=== PATIENT | male | born 1960 | race Caucasian/White ===

== ENCOUNTER 2021-03-22 11:46 | Observation (INO) | payer BC ==
[2021-03-22] VITALS (9 sets, daily range): BP systolic 116–140; BP diastolic 69–80
[~2021-03-22] VITALS: Ht 185.4 cm; Wt 98.4 kg
--- NOTE | ~2021-03-22 | D ---
[address] [address] DISCHARGE SUMMARY Name: TOAN FORD Room: [address] M.R.#: [id number] Admission: 03/22/21 Attend Phys: Edward Ontiveros MD, Discharge: Date of : 60 Report #: [id number] THIS REPORT FOR: cc: Dennys Pathak MD, Steven E. MD Holkins,Edward Meléndez MD [facility] ~ DOC #: [id number] Edward Ontiveros MD [facility] DATE OF DISCHARGE: 03/23/2021 FINAL DISCHARGE DIAGNOSES: 1. Unstable angina. 2. Abnormal stress echocardiogram. 3. Status post percutaneous coronary intervention with atherectomy and stenting of the proximal-mid left anterior descending. 4. Hypertension. 5. Hyperlipidemia. PROCEDURE: 03/22/2021 - left heart catheterization, left ventriculography, selective coronary arteriography, fractional flow reserve calculated pertinent to the LAD and PCI with atherectomy, angioplasty and stenting of the proximal-mid LAD. HOSPITAL COURSE: The patient is a very pleasant 60-year-old male who has a history of coronary artery disease 6 years and 8 months, status post PCI to the LAD. He presented with recurrent achiness in the jaw, compatible with angina. Stress echocardiogram this last week was abnormal with inferior and anterolateral ST segment depression at peak exercise and during the post-exercise phase with 1.[address] segment depression noted with concomitant discomfort in the throat. Since then, he experienced other episodes of pain and ultimately presented to the ER on 03/22/2021. He had no evidence for acute myocardial injury, but was taken to the section laborer in this context. Catheterization revealed 75% proximal, 70% mid LAD stenosis. There was 40% narrowing of a marginal branch of the circumflex and no significant stenosis of the dominant right coronary artery. Left ventricular function was normal. Estimated ejection fraction of 60%. I performed FFR at rest on the tandem LAD lesions with Pd/Pa mean pressure value of 0.89 with minimum value at rest being 0.91. I elected not to provoke it with vasodilators in the context of a systemic pressure in the mid 90s during the procedure. Given the abnormal resting Pd/Pa-FFR, I elected to proceed with PCI to the proximal - mid LAD with atherectomy, angioplasty and stenting deploying one 3.0 x 26 mm Segundo drug-eluting stent with one 2.75 x 8 just distal to that, both postdilated with a 3.0 x 8 mm NC Trek to 12-18 atmospheres. There was 0% [place] [address] DISCHARGE SUMMARY Name: TOAN FORD Room: [address] M.R.#: [id number] Admission: 03/22/21 Attend Phys: Edward Ontiveros MD, Discharge: Date of : 60 Report #: [id number] residual narrowing, REAL 3 flow to the distal vessel. Troponin did not rise out of the reference range with sequential values of 0.06. LABORATORY DATA: On 03/23 revealed sodium 140, potassium 3.9, BUN 19, creatinine 1.0, glucose 82. Hemoglobin 13.3, white blood cell count 7200 with 187,000 platelets. Cholesterol 107, triglycerides 57, HDL 55, LDL 41. Troponin was less than 0.06. DISCHARGE MEDICATIONS: The patient was discharged to home on the following medications: Prasugrel or Effient 10 mg daily with a 60 mg periprocedural dose, tamsulosin 0.4 mg daily, carvedilol 12.5 mg b.i.d., losartan 50 mg daily, atorvastatin 20 mg at bedtime, aspirin 81 mg daily, vitamin D3 or cholecalciferol 25 mcg daily, tramadol 50 mg 2 tablets every 6 hours as needed for musculoskeletal pain, multivitamin tablet daily, ascorbic acid with vitamin C 500 mg daily and polyethylene glycol or MiraLax 17 grams p.o. daily. I have scheduled to see the patient in followup in approximately 4 weeks. Therefore, the patient is discharged to home in stable condition on the aforementioned medications with followup on 05/14/2021. Edward Ontiveros MD [facility] By: [id number] Ontiveros MD, [facility] /nt
[2021-03-22 12:13] LABS: ABSOLUTE BASOPHILS 0.1 thou/uL (0.0-0.2); ABSOLUTE EOSINOPHILS 0.1 thou/uL (0.0-0.7); ABSOLUTE LYMPHOCYTES 1.3 thou/uL (0.8-5.3); ABSOLUTE MONOCYTES 0.5 thou/uL (0.0-1.2); ABSOLUTE NEUTROPHILS 5.3 thou/uL (1.6-8.1); BASOPHILS 0.8 %; EOSINOPHILS 1.8 %; HEMATOCRIT 42.5 % (42.0-52.0); HEMOGLOBIN 14.1 gm/dL (14.0-18.0); LYMPHOCYTES 17.7 %; MCH 29.9 pg (26.0-34.0); MCHC 33.2 g/dL (28.0-37.0); MCV 89.8 fL (80.0-100.0); MONOCYTES 6.4 %; MPV 8.4 fl. (7.2-11.1); NUCLEATED RBCS 0 /100WBC; PLATELET COUNT* 227 thou/uL (150-400); POLYS 73.3 %; RBC 4.73 mil/uL (4.50-6.00); RDW-CV 13.6 % (10.5-14.5); WBC 7.2 thou/uL (4.0-11.0)
[2021-03-22 12:18] LABS: CALCIUM 9.1 mg/dL (8.5-10.1); POTASSIUM 4.4 mmol/L (3.5-5.1)
[2021-03-22 12:28] LABS: ALBUMIN 3.7 g/dL (3.4-5.0); MAGNESIUM 2.3 mg/dL (1.8-2.4); TOTAL PROTEIN 6.9 g/dL (6.4-8.2)
[2021-03-22] MEDS ORDERED: CARVEDILOL12.5 MG PO (12:56)
[2021-03-22] MEDS ORDERED: FLOMAX0.4 MG PO (12:56)
[2021-03-22] MEDS ORDERED: COZAAR 50 MG TA50 M1 PO (12:56)
[2021-03-22] MEDS ORDERED: LIPITOR 20 MG T20 M1 PO (12:56)
[2021-03-22] MEDS ORDERED: VITAMIN D325 MC3 PO (12:57)
[2021-03-22] MEDS ORDERED: TRAMADOL 50 MG50 MG PO (12:57)
[2021-03-22] MEDS ORDERED: ASPIRIN EC81 M1 PO (12:57)
[2021-03-22] MEDS ORDERED: GUMMI BEAR MUL1 EAC1 PO (12:58)
[2021-03-22] MEDS ORDERED: VITAMIN C500 M1 PO (12:58)
[2021-03-22] MEDS ORDERED: MIRALAX119 GM PO (12:59)
--- NOTE | 2021-03-22 19:11 | NUR ---
ANGIOMAX OFF. CATH SITE WITHOUT BLEEDING
[2021-03-23 03:43] VITALS: BP 118/75
[2021-03-23 04:20] LABS: HEMATOCRIT 39.6 % (42.0-52.0); HEMOGLOBIN 13.3 gm/dL (14.0-18.0); MCH 29.7 pg (26.0-34.0); MCHC 33.6 g/dL (28.0-37.0); MCV 88.4 fL (80.0-100.0); MPV 7.9 fl. (7.2-11.1); RBC 4.48 mil/uL (4.50-6.00); RDW-CV 13.4 % (10.5-14.5); WBC 7.2 thou/uL (4.0-11.0)
[2021-03-23 04:53] LABS: ALBUMIN 3.4 g/dL (3.4-5.0); ALKALINE PHOSPHATASE 73 U/L (46-116); ANION GAP 9 mmol/L (7-16); BUN 19 mg/dL (7-18); CALCIUM 8.5 mg/dL (8.5-10.1); CHLORIDE 105 mmol/L (98-107); CHOLESTEROL 107 mg/dL (<200); CO2 26 mmol/L (21-32); GLUCOSE 82 mg/dL (70-99); HDL CHOLESTEROL 55 mg/dL (>40); LDL CHOLESTEROL 41 mg/dL (<100); MAGNESIUM 2.2 mg/dL (1.8-2.4); POTASSIUM 3.9 mmol/L (3.5-5.1); SGOT 15 U/L (15-37); SGPT 32 U/L (30-65); SODIUM 140 mmol/L (136-145); TC:HDL 1.9 Ratio (Not establshd); TOTAL BILIRUBIN 0.8 mg/dL (<0.1-1.0); TOTAL PROTEIN 5.8 g/dL (6.4-8.2); TRIGLYCERIDE 57 mg/dL (<150); VLDL 11 mg/dL (<40)
[2021-03-23 04:54] LABS: SERUM ASSESSMENT Clear
--- NOTE | 2021-03-23 06:44 | NUR ---
NO ACUTE CHANGES THROUGHOUT SHIFT. ALL ROUNDINGS COMPLETED, ALL NEEDS MET. CALL LIGHT AND PERSONAL ITEMS IN REACH. BED LOCKED AND IN LOW POSITION. SEE CHARTING FOR DETAILS. [facility].
[2021-03-23 08:09] VITALS: BP 120/63
[2021-03-23] MEDS ORDERED: EFFIENT10 MG PO (09:22)
--- NOTE | 2021-03-23 09:33 | H ---
[place] [address] HISTORY AND PHYSICAL Name: TOAN FORD Room: [address] ADM [facility] MYangRYang#: [id number] Admission: 03/22/21 Attend Phys: Edward Ontiveros MD, Discharge: Date of : 60 Report #: [id number] THIS REPORT FOR: cc: Dennys Pathak MD, Steven E. MD Holkins,Edward Meléndez MD [facility] ~ DOC #: [id number] Edward Ontiveros MD [facility] ADMIT DATE: 03/22/2021 HISTORY OF PRESENT ILLNESS: The patient is a very pleasant 60-year-old male with a history of coronary artery disease, 6 years and 8 months status post stenting of the mid LAD. Recently, he has noted some jaw pain similar to his prior ischemic discomfort, though none has been protracted. Recent stress echocardiogram was remarkable and that the patient developed ischemic symptoms and also developed ischemic ST-T changes inferolaterally at peak exercise and in the post-exercise phase. Since that test, he has continued to note some episodes of jaw pain with minimal provocation including stress and activity. The pattern has been one of clinical instability. Risk factors include hypertension and hyperlipidemia. MEDICATIONS: Include atorvastatin 20 mg daily, carvedilol 12.5 mg b.i.d., cholecalciferol 1000 units daily, losartan 50 mg daily, meloxicam 15 mg daily, multivitamin, tamsulosin 0.4 mg daily, Ultram 50 mg as needed. PAST MEDICAL HISTORY: Remarkable for hyperlipidemia, arthritis. SOCIAL HISTORY: He is . He is a nonsmoker. PHYSICAL EXAMINATION: GENERAL: Demonstrates mildly distressed middle-aged male. VITAL SIGNS: Blood pressure 130/80, pulse rate is 74, respirations are 18 per minute. NECK: Jugular venous pressure is normal. CHEST: Clear. CARDIAC: Reveals normal first and second heart sounds without murmurs or gallops. ABDOMEN: Soft. EXTREMITIES: Without edema with intact peripheral pulses. LABORATORY DATA: Recent stress echocardiogram was reviewed and is remarkable for EKG changes suggesting ischemia at peak exercise [place] [address] HISTORY AND PHYSICAL Name: TOAN FORD Room: [address]#: [id number] Admission: 03/22/21 Attend Phys: Edward Ontiveros MD, Discharge: Date of : 60 Report #: [id number] phase. IMPRESSION: 1. Unstable angina. 2. Recently abnormal stress echocardiogram. 3. Hypercholesterolemia. 4. Hypertension. RECOMMENDATIONS: Given the aforementioned clinical scenario with chest pain or jaw discomfort, increasing in frequency and severity and abnormal stress echocardiogram, I would recommend proceeding with cardiac catheterization to define current coronary anatomy and prospects for subsequent therapeutic modification. The procedure and risks have been discussed with the patient. Critical care time is 35 minutes from 1345 to 1420 on 03/22/2021. Edward Ontiveros MD [facility]/CM <ELECTRONICALLY SIGNED> By: Edward Ontiveros MD, [facility] 03/23/21 0933 1320 1406Jochema Ontiveros MD, [facility] /nt
[2021-03-23 10:00] VITALS: BP 120/63
--- NOTE | 2021-03-23 11:15 | NUR ---
ASSUMED CARE OF PT THIS AM AROUND 0715- LEI MAKER IN PLACE ORDERED, TRACING SB- UPON ASSESSMENT PT NOTED TO BE RESTING IN BED- PT A&O X4- CONT OF B/B- UP AD-GINA IN ROOM, STEADY GAIT NOTED- LCTA, RESP EVEN AND UN-LABORED- VSS, O2 SAT 95% ON RA- ABD SOFT/ROUND/NON-TENDER, BS X4 QUADS-LAST BM NOTED 03/22/21- IV NOTED TO LEFT FA INTACT AND SL- RIGHT GROIN SITE C/D/I WITH NO HEMATOMA- IN TO SEE PT THIS AM AND OKAY FOR D/C- IV TO LEFT FA D/C'D ALONG WITH LEI MAKER- D/C EDUCATION/TEACHING/NEEDED FOLLOW UP'S COMMUNICATED TO PT WITH VERBAL UNDERSTANDING NOTED- WRITTEN EDUCATION PROVIDED TO PT WITH ALL QUESTIONS AND CONCERNS ADDRESSED- BELONGINGS PACKED AND ACCOUNTED FOR PER PT- PT ESCORTED PER TECH VIA AMB WITH BELONGINGS; AT SIDE TO VEHICLE FOR D/C AT 1115- NO PROBLEMS TO NOTE AT TIME OF D/C
[2021-03-23 11:19] VITALS: BP 120/63
--- NOTE | 2021-03-23 12:01 | CARD ---
[address] [address] CARDIAC CATH REPORT Name: LILIANATOAN MCKNIGHT Gabe Room: [address] [place]a M.RYang#: [id number] Admission: 03/22/21 Attend Phys: Edward Ontiveros MD, Discharge: 03/23/21 Date of : 60 Report #: [id number] THIS REPORT FOR: cc: Dennys Pathak MD, Steven E. MD Holkins,Edward Meléndez MD [facility] ~ APPROVED REPORT Study performed: 03/22/2021 14:20:38 Patient Details Patient Status: ED Room #: The patient is a 60 year-old male Event Personnel Edward Ontiveros Automobile Mechanic Apprentice, Lida Villagran RN Game Bird Farmer, Katlyn Wall RTR Monitor, Oli Veloz Scrub Procedures Performed Art Access - R femoral artery, Left Heart Cath w/or w/o Coronaries LHC, JOHNATHAN w/Atherectomy Single LAD DESATH, Hemostasis w/ Angioseal; resting FFR calculated pertinent to proximalmid LAD stenosis Indication Unstable angina , Positive stress test Risk Factors Hypercholesterolemia, Hypertension Previous Procedures/Diagnoses Previous PCI Admission/Lab Medications/Medications given during procedure Heparin IV 8000 units, Angiomax IV 15 ml, Angiomax Drip IV 34.45 ml per hr, Aspirin PO 162 mg, Effient PO 60 mg Procedure Narrative The patient was brought urgently to the Cardiac Catheterization Laboratory and was prepped and draped in a sterile manner. The right femoral was infiltrated with 2% Lidocaine subcutaneous anesthesia. IV conscious sedation was used throughout procedure with appropriate monitoring and was performed in the presence [place] [address] CARDIAC CATH REPORT Name: TOAN FORD Room: [address]#: [id number] Admission: 03/22/21 Attend Phys: Edward Ontiveros MD, Discharge: 03/23/21 Date of : 60 Report #: [id number] who was an independent trained observer other than the physician performing the procedure. A 6fr Ultimum sheath was inserted into the right femoral artery. Coronary angiography was performed using coronary diagnostic catheters. The right coronary system was accessed and visualized with a 6F JR4 catheter. The left coronary system was accessed and visualized with a 6F JL4 catheter. The left ventricle was accessed and visualized with a 6F Pigtail catheter. Left ventricular/Aortic Valve gradient assessed via catheter pullback. Left ventriculogram was performed in CHAVEZ projection. Pre-demployment femoral angiogram was performed . Closure device was deployed with a 6 Fr Angioseal STS. The patient tolerated the procedure well and there were no complications associated with the procedure. There was no hematoma. Intraoperative Conscious Sedation Sedation start time: 14:51 Case end Time: 16:46 Fentanyl 50 mcg Versed 3 mg Fluoro Time: 20.7 minutes Dose: DAP [id number] cGycm2 2875 mGy Contrast Type and Amount: Omnipaque 500 ml Diagnostic Cath Left Main 0% narrowing LAD 40% ostial narrowing with 75% proximal and 70% mid vessel in-stent restenosis Circumflex 40% narrowing the proximal portion of the prominent first marginal branch Right Coronary Large dominant vessel with 0% narrowing Left Ventriculography The left ventricle is normal in size with normal contractility. The left ventricular ejection fraction is estimated to be 60-65%. Left ventricular wall motion abnormalities are not present. There is no mitral insufficiency. IVUS Anticoagulation was achieved with Heparin. Fractional Flow [place] was performed on the Proximalmid LAD vessel. A 6 Ethiopian XB 3.5 Guide Catheter was used to engage the Left ostium. A FloWire Interventional Guidewire was used. IVUS Findings The minimum resting FFR was 0.89, less [place] [address] CARDIAC CATH REPORT Name: LILIANATOAN P Room: [address]#: [id number] Admission: 03/22/21 Attend Phys: Edward Ontiveros MD, Discharge: 03/23/21 Date of : 60 Report #: [id number] 0.91. Given this abnormal resting value, the clinical pattern of unstable angina, and the recently abnormal stress echocardiogram, I elected to proceed with PCI to the proximalmid LAD. Hemodynamics The aortic pressure is 114/62 mmHg with a mean of 100 mmHg. The left ventricular pressure is 113/-3 mmHg with a mean of mmHg. The left ventricular end diastolic pressure is 5 mmHg. PCI Technique Lesion Anticoagulation was achieved with Heparin. Patient was preloaded with Heparin IV 8000 units. Percutaneous coronary intervention was performed on the proximal left anterior descending artery segment. The lesion stenosis prior to intervention was 75% with REAL 3 flow. A 6FR XB 3.5 100CM Guide Catheter was used to engage the lm ostium. A BMW 190cm Interventional Guidewire was used to cross the lesion. BALLOON DILATION A Balloon catheter NC Trek RX 3.0 X 12 was inserted and inflated up to 15.00atm for 19seconds. An AngioSculpt 3.0 x 10 scoring balloon catheter was inserted and inflated up to 10 james for 12 seconds; 12 james for 10 seconds; 14 james for 11 seconds. STENT DEPLOYMENT A drug-eluting stent Segundo RX Stent 3.0X26mm was inserted and inflated up to 14.00atm for 13seconds. Additional Inflation: 16.00atm for 10seconds. A 2nd drug-eluting stent Segundo RX 2.75 x 8mm was inserted and inflated up to 12 james for 12 seconds. POST STENT DEPLOYMENT BALLOON DILATION A Balloon catheter NC Euphora 3.0 x 8 was inserted and inflated up to 12.00atm for 12seconds. Additional Inflation: 14.00atm for 8seconds. Final angiography reveals 0 % stenosis with REAL 3 flow. PCI Technique Lesion The lesion stenosis prior to intervention was Proximalmid LAD% with REAL 6 Ethiopian XB 3.5 flow. A Left Guide Catheter was used to engage the FloWire ostium. BALLOON DILATION A Balloon catheter The minimum resting FFR was 0.89, less than the [facility] [address] [place] [address] CARDIAC CATH REPORT Name: TOAN FORD Room: [address]#: [id number] Admission: 03/22/21 Attend Phys: Edward Ontiveros MD, Discharge: 03/23/21 Date of : 60 Report #: [id number] excepted norm of 0.91. Given this abnormal resting value, the clinical pattern of unstable angina, and the recently abnormal stress echocardiogram, I elected to proceed with PCI to the proximalmid LAD. was inserted and inflated up to james for seconds. Conclusion 1. Significant coronary artery disease characterized by the following: A 40% ostial with 75% proximal and 70% mid LAD in-stent restenosis B 40% narrowing of the proximal portion of the prominent first marginal branch of the nondominant circumflex C normal right coronary artery 2. Normal left ventricular systolic function, estimated ejection fraction 60-65% 3. FFR was calculated at rest pertinent to the proximalmid LAD lesions with a minimum value of 0.89, less than the accepted norm of 0.91 4. Successful PCI with angioplasty atherotomy/atherectomy and stenting of the proximalmid LAD with 0% residual narrowing following final stent deployment and REAL-3 flow to the distal vessel Recommendations Cardiac Risk Reduction Program Aggressive Medical Therapy Medications Administered Aspirin (any) Prasugrel Diagnostic Cath Approved by: Edward Ontiveros MD Date/Time: 03/23/2021 11:43:16 <ELECTRONICALLY SIGNED> By: Edward Ontiveros MD, FAC 03/23/211199 1200 1200Edward Ontiveros MD, FAC /INF
--- NOTE | 2021-03-25 10:38 | EKG ---
[place] [address] ELECTROCARDIOGRAM REPORT Name: TOAN FORD Room: [address] M.R.#: [id number] Admission: 03/22/21 Attend Phys: Lloyd Pascal Discharge: 03/23/21 Date of : 60 Date of Service: 03/22/21 1154 Report #: [id number] THIS REPORT FOR: //name// [facility] ED Test Date: 2021-03-22 Test Time: 11:54:42 Pat Name: TOAN FORD Department: Room: [facility] Gender: M Cardio Clinician: TG : 1960 Requested By: Tony Del Toro Order Number: [id number] MD: Douglas Yoo Measurements Intervals [place] Rate: 64 P: 61 NM: 139 QRS: 44 QRSD: 90 T: 29 QT: 386 QTc: 399 Interpretive Statements Sinus rhythm No previous ECG available for comparison Electronically Signed On 03-25-2021 10:38:16 CDT by Douglas Yoo [email or web address] <ELECTRONICALLY SIGNED> By: Douglas Yoo MD, FACValentino 03/25/21 1038 1154 1154 Douglas Yoo MD, [facility] /EPI
== END 2021-03-23 11:15 | disposition home or self-care (01) ==
LOC: M.ERS 11:46 → M.TBA-ER 13:56 → M.ERS 13:56 → M.TBA-ER 13:56 → M.2W 17:30
PROVIDERS: Emergency Medicine Emergency Medical Services; Internal Medicine; ADMIT Internal Medicine; ATTEND Internal Medicine
DX: I25.110 Atherosclerotic heart disease of native coronary artery with unstable angina pectoris (principal); Z20.822 Contact with and (suspected) exposure to COVID-19; R68.84 Jaw pain; E78.00 Pure hypercholesterolemia, unspecified; I10 Essential (primary) hypertension; R94.39 Abnormal result of other cardiovascular function study; G89.29 Other chronic pain; M54.9 Dorsalgia, unspecified; Z79.82 Long term (current) use of aspirin; Z79.899 Other long term (current) drug therapy